=== PATIENT | male | born 1990 | race Caucasian/White ===

== ENCOUNTER 2017-05-10 20:10 | Emergency (ER) | payer OTHER ==
[~2017-05-10] VITALS: Ht 167.6 cm; Wt 78.0 kg
[2017-05-10] MEDS ORDERED: KETOROLAC TROMETHAMINE 10 MG TAB PO ONE (21:30)
[2017-05-10 22:48] VITALS: BP 112/72
--- NOTE | 2017-05-11 09:03 | REP ---
Left hand four views : There is no fracture or dislocation. Mineralization and joint spaces are normal. There are no calcifications or foreign bodies. Impression: Negative left hand . Signed by Dave Saxena MD 05/11/2017 08:54 A
--- NOTE | 2017-05-11 09:04 | REP ---
Right ankle four views : There is no fracture or dislocation. Mineralization and joint spaces are normal. There are no calcifications or foreign bodies. Impression: Negative right ankle . Signed by Dave Saxena MD 05/11/2017 08:55 A
--- NOTE | 2017-05-11 09:05 | REP ---
Right foot four views : There is no fracture or dislocation. Mineralization and joint spaces are normal. There are no calcifications or foreign bodies. Impression: Negative right foot . Signed by Dave Saxena MD 05/11/2017 08:56 A
== END 2017-05-10 22:49 | disposition home or self-care (01) ==
LOC: M ED 21:49
DX: M65.842 Other synovitis and tenosynovitis, left hand (principal); S93.401A Sprain of unspecified ligament of right ankle, initial encounter; X50.9XXA Other and unspecified overexertion or strenuous movements or postures, initial encounter; Y92.89 Other specified places as the place of occurrence of the external cause; Y93.64 Activity, baseball; Y99.9 Unspecified external cause status